=== PATIENT | male | born 1945 | race African-American/Black ===

== ENCOUNTER → 2017-08-08 13:43 | Outpatient (CLI) | payer MEDICARE, OTHER, SELFPAY ==
--- NOTE | 2017-08-08 13:48 | XR_ITS ---
XR elbow RT min 3V HISTORY: Pain and swelling elbow ITS.REASON: elbow knot ORDERING PHYSICIAN: Reinaldo Robb MD PATIENT AGE: 72 years COMPARISON: None FINDINGS: There is prominent soft tissue swelling along the olecranon region of the elbow consistent with olecranon bursitis. A prominent enthesophyte is present at the olecranon. No fracture or dislocation. No lytic or blastic change. IMPRESSION: Olecranon bursitis with prominent enthesophyte at the olecranon
== END ==
PROVIDERS: PCP Nurse Practitioner Family; Visit Provider Orthopaedic Surgery
DX: M25.421 Effusion, right elbow (principal)
CPT/HCPCS: 73080

== ENCOUNTER 2018-08-08 21:41 | Emergency (ER) | payer MEDICARE, SELFPAY ==
[2018-08-08 21:51] VITALS: BP 136/82; PULSE 71; RESP 20; TEMP 37.2; O2SAT 98; BMI 34.2
--- NOTE | 2018-08-08 21:54 | HMH.EDGENADL ---
ED Disposition Clinical Impression: URI (upper respiratory infection) Clinical Impression: (Ruled Out): URI due to ida influenza virus Disposition: Home, Self-Care Condition on Discharge: Good Instructions: DI for Viral Upper Respiratory Infection -- Adult Prescriptions: predniSONE [Prednisone 20mg Tab] 20 mg PO BID 5 Days #10 tab Benzonatate [Tessalon Perle 100mg Cap] 200 mg PO TID PRN 7 Days #20 cap PRN Reason: Cough Referrals: Cornelius Quesada MD [Primary Care Provider] - Time of Disposition: 23:10 - Critical Care Critical Care Time: No Attestation: On , the high probability of a clinically significant, sudden or life threatening deterioration of the following system(s) required my full and direct attention, intervention and personal management. The time I documented below is in addition to time spent performing reported procedures but includes the following listed in this critical care notation. Medical Decision Making - Medical Records Medical records reviewed: Yes: I reviewed the patient's medical records. - Gregory Inquiry Pt receiving controlled substance: No Gregory was queried for this patient: No Vital Signs: 08/08/18 21:51 Temperature 98.9 F Temperature Source Oral Pulse Rate [Right Brachial] 71 Respiratory Rate 20 Blood Pressure [Right Arm] 136/82 Blood Pressure Mean [Right Arm] 100 Blood Pressure Source [Right Arm] Automatic Cuff Blood Pressure Position [Right Arm] Sitting 02 Sat by Pulse Oximetry 98 Oxygen Delivery Method Room Air - Lab Data Lab results reviewed: Yes: I reviewed the patient's lab results. Orders (Tests/Meds): ED MEDICATIONS Generic Name Dose Route Start Last Admin Trade Name Freq PRN Reason Stop Dose Admin Benzonatate 200 mg 08/08/18 23:15 Tessalon Perles 100mg Capsule PO 09/07/18 23:14 ONCE AYESHA Dexamethasone Sodium Phosphate 10 mg 08/08/18 23:07 Decadron 4mg/Ml 1ml Vial IM 08/08/18 23:08 ONCE ONE ORDERS Category Date Time Status XR chest 2V Stat Exams 08/08/18 21:58 Taken General Adult HPI - General Stated complaint: cough Time Seen by Provider: 08/08/18 21:54 Mode of Arrival: Ambulatory Source of Information: Patient Limitations: No Limitations - Related Data Home Medications Medication Instructions Recorded Confirmed Amlodipine Besylate [Norvasc 5mg 5 mg PO DAILY 08/08/18 08/08/18 tablet] Aspirin [Low Dose Aspirin EC] 81 mg PO DAILY 08/08/18 08/08/18 Lisinopril/Hydrochlorothiazide 1 tab PO DAILY 08/08/18 08/08/18 [Lisinopril-Hctz 20-25 mg Tab] Previous Rx's Medication Instructions Recorded Benzonatate [Tessalon Perle 100mg 200 mg PO TID PRN 7 Days #20 cap 08/08/18 Cap] predniSONE [Prednisone 20mg 20 mg PO BID 5 Days #10 tab 08/08/18 Tab] Allergies Allergy/AdvReac Type Severity Reaction Status Date / Time No Known Allergies Allergy Verified 08/08/18 21:57 [facility] History - Hepatitis A Screen Attestation statement:: This patient has been screened for Hepatitis A risk factors. I have reviewed the patient's past medical history: Yes Medical History: Reports:: Hyperlipidemia, Hypertension Other Surgeries: Yes: Cardiac Catheterization, Other - Social History Smoking Status: Never smoker Alcohol Intake: current Alcohol Intake Frequency:: holidays/special occasions only Substance Use Type: denies use Occupational Status: unemployed, retired Family Hx:: No significant family history ROS Obtained: Yes All systems reviewed & no additional complaints - Constitutional Constitutional: Denies chills, Denies fever(s) - Eyes Eyes: Denies change in vision - ENT Ears, Nose, Mouth, and Throat: Reports throat swelling, Reports other (subjective) - Cardiovascular Cardiovascular: Denies chest pain - Respiratory Respiratory: Yes cough, No dyspnea - Gastrointestinal Gastrointestingal: Reports: system reviewed and no additional complaints, except as docu - Musc
--- NOTE | 2018-08-08 21:58 | XR_ITS ---
XR chest 2V HISTORY: ITS.REASON: cough ORDERING PHYSICIAN: Cornelius Harrell MD PATIENT AGE: 73 years COMPARISON: 08/15/2015 FINDINGS: The cardiomediastinal silhouette and pulmonary vascularity are within normal limits. There is mild right basilar atelectasis. Slightly elevated left hemidiaphragm Degenerative change thoracic spine.. IMPRESSION: Right basilar atelectasis
--- NOTE | 2018-08-08 22:00 | ED_ITS ---
ED Disposition Clinical Impression: URI (upper respiratory infection) Clinical Impression: (Ruled Out): URI due to ida influenza virus Disposition: Home, Self-Care Condition on Discharge: Good Instructions: DI for Viral Upper Respiratory Infection -- Adult Prescriptions: predniSONE [Prednisone 20mg Tab] 20 mg PO BID 5 Days #10 tab Benzonatate [Tessalon Perle 100mg Cap] 200 mg PO TID PRN 7 Days #20 cap PRN Reason: Cough Referrals: Cornelius Quesada MD [Primary Care Provider] - Time of Disposition: 23:10 - Critical Care Critical Care Time: No Attestation: On , the high probability of a clinically significant, sudden or life threatening deterioration of the following system(s) required my full and direct attention, intervention and personal management. The time I documented below is in addition to time spent performing reported procedures but includes the following listed in this critical care notation. Medical Decision Making - Medical Records Medical records reviewed: Yes: I reviewed the patient's medical records. - Gregory Inquiry Pt receiving controlled substance: No Gregory was queried for this patient: No Vital Signs: 08/08/18 21:51 Temperature 98.9 F Temperature Source Oral Pulse Rate [Right Brachial] 71 Respiratory Rate 20 Blood Pressure [Right Arm] 136/82 Blood Pressure Mean [Right Arm] 100 Blood Pressure Source [Right Arm] Automatic Cuff Blood Pressure Position [Right Arm] Sitting 02 Sat by Pulse Oximetry 98 Oxygen Delivery Method Room Air - Lab Data Lab results reviewed: Yes: I reviewed the patient's lab results. Orders (Tests/Meds): ED MEDICATIONS Generic Name Dose Route Start Last Admin Trade Name Freq PRN Reason Stop Dose Admin Benzonatate 200 mg 08/08/18 23:15 Tessalon Perles 100mg Capsule PO 09/07/18 23:14 ONCE AYESHA Dexamethasone Sodium Phosphate 10 mg 08/08/18 23:07 Decadron 4mg/Ml 1ml Vial IM 08/08/18 23:08 ONCE ONE ORDERS Category Date Time Status XR chest 2V Stat Exams 08/08/18 21:58 Taken General Adult HPI - General Stated complaint: cough Time Seen by Provider: 08/08/18 21:54 Mode of Arrival: Ambulatory Source of Information: Patient Limitations: No Limitations - Related Data Home Medications Medication Instructions Recorded Confirmed Amlodipine Besylate [Norvasc 5mg 5 mg PO DAILY 08/08/18 08/08/18 tablet] Aspirin [Low Dose Aspirin EC] 81 mg PO DAILY 08/08/18 08/08/18 Lisinopril/Hydrochlorothiazide 1 tab PO DAILY 08/08/18 08/08/18 [Lisinopril-Hctz 20-25 mg Tab] Previous Rx's Medication Instructions Recorded Benzonatate [Tessalon Perle 100mg 200 mg PO TID PRN 7 Days #20 cap 08/08/18 Cap] predniSONE [Prednisone 20mg 20 mg PO BID 5 Days #10 tab 08/08/18 Tab] Allergies Allergy/AdvReac Type Severity Reaction Status Date / Time No Known Allergies Allergy Verified 08/08/18 21:57 [facility] History - Hepatitis A Screen Attestation statement:: Hilary paticlaude
[2018-08-08 23:23] VITALS: BP 128/69; PULSE 81; RESP 18; TEMP 36.7; O2SAT 98
== END 2018-08-08 23:24 | disposition home or self-care (01) ==
PROVIDERS: Emergency Provider Emergency Medicine; PCP Emergency Medicine
DX: J06.9 Acute upper respiratory infection, unspecified (principal)
CPT/HCPCS: 71046; 96372; 99282

== ENCOUNTER → 2018-12-05 09:11 | Outpatient (CLI) | payer MEDICARE, SELFPAY ==
[2018-12-05 11:33] LABS: Alanine Aminotransferase 26 U/L (12-78); Albumin Level 3.7 gm/dL (3.4-5.0); Alkaline Phosphatase 63 U/L (46-116); Aspartate Amino Transferase 15 U/L (15-37); Bilirubin,Direct 0.1 mg/dL (0.0-0.2); Bilirubin,Indirect 0.5 mg/dL (0.0-0.9); Bilirubin,Total 0.6 mg/dL (0.2-1.0); Chol/HDL Ratio 3.4 (1-3.5); Cholesterol 186 mg/dL (140-200); HDL Cholesterol 54 mg/dL (27-67); LDL Cholesterol 121 mg/dL (0-130); Total Protein,Serum 7.3 gm/dL (6.4-8.2); Triglycerides 53 mg/dL (30-200); VLDL Cholesterol 11 mg/dL (0-40)
== END ==
PROVIDERS: Visit Provider Nurse Practitioner Family
DX: I10 Essential (primary) hypertension; R00.1 Bradycardia, unspecified; E78.49 Other hyperlipidemia
CPT/HCPCS: 36415; 80061; 80076

== ENCOUNTER 2020-01-24 23:05 | Emergency (ER) | payer MEDICARE, SELFPAY ==
--- NOTE | 2020-01-24 23:37 | PC.NURSE ---
Pt states he was exposed to a positive COVID pt and was here for a COVID test, pt did not want to be seen in ER, only tested. Pt was given an outpatient COVID order and left
[2020-01-24 23:39] VITALS: BP 000/00; PULSE 0; RESP 0; TEMP -17.7; TEMP 0; O2SAT 0
== END 2020-01-24 23:39 | disposition left against medical advice (07) ==
PROVIDERS: Emergency Provider Student in an Organized Health Care Education/Training Program; PCP Emergency Medicine
DX: Z53.21 Procedure and treatment not carried out due to patient leaving prior to being seen by health care provider (principal)
CPT/HCPCS: 99211

== ENCOUNTER → 2020-01-24 23:19 | Outpatient (CLI) | payer MEDICARE, SELFPAY | PROVIDERS: PCP Emergency Medicine; Visit Provider Student in an Organized Health Care Education/Training Program | DX: Z03.818 Encounter for observation for suspected exposure to other biological agents ruled out (principal) | CPT/HCPCS: U0003 ==

== ENCOUNTER → 2020-02-02 12:11 | Outpatient (CLI) | payer MEDICARE, SELFPAY ==
[2020-02-02 14:25] LABS: Alanine Aminotransferase 33 U/L (12-78); Albumin Level 4.3 g/dl (3.5-5.0); Alkaline Phosphatase 76 U/L (38-126); Aspartate Amino Transferase 29 U/L (17-59); Bilirubin,Indirect 0.6 mg/dL (0.0-0.9); Bilirubin,Total 0.6 mg/dl (0.2-1.3); Bilirubin,Unconjugated 0.6 mg/dL (0.0-1.1); Cholesterol 133 mg/dl (140-200); Total Protein,Serum 7.5 g/dl (6.3-8.2); Triglycerides 66 mg/dl (30-150); VLDL Cholesterol 13 mg/dL (0-40)
[2020-02-02 14:26] LABS: Chol/HDL Ratio 2.2 (1-3.5); HDL Cholesterol 60 mg/dl (40-60)
[2020-02-02 14:37] LABS: Direct LDL Cholesterol 62.32 mg/dL (100-129)
== END ==
PROVIDERS: Visit Provider Nurse Practitioner Family
DX: E78.5 Hyperlipidemia, unspecified (principal); I10 Essential (primary) hypertension
CPT/HCPCS: 36415; 80061; 80076

== ENCOUNTER 2020-03-18 14:31 | Emergency (ER) | payer MEDICARE, SELFPAY ==
[2020-03-18 14:45] VITALS: BP 155/57; PULSE 63; RESP 18; TEMP 36.8; O2SAT 96; BMI 33.4
[2020-03-18 14:59] VITALS: BP 155/57; PULSE 63; RESP 18; TEMP 36.8; O2SAT 96
--- NOTE | 2020-03-18 15:13 | HMH.EDUTC ---
[facility] [place] Impression: Exposure to COVID-19 virus Disposition: Home, Self-Care Condition on Discharge: Good Instructions: Preventing the Spread of Coronavirus Discharge Instructions Additional Instructions: Drink plenty of fluids. Take tylenol for pain or fever. Return if you begin to have difficulty breathing. Follow up with your regular doctor. GO TO THE ER FOR ANY WORSENING SYMPTOMS Referrals: Cornelius Quesada MD [Primary Care Provider] - Time of Disposition: 15:14 Medical Decision Making - Medical Records Medical records reviewed: No: I reviewed the patient's medical records. - Gregory Inquiry Pt receiving controlled substance: No Vital Signs: 03/18/20 14:45 03/18/20 14:59 Temperature 98.3 F 98.3 F Temperature Source Oral Pulse Rate 63 Pulse Rate [Right Brachial] 63 Respiratory Rate 18 18 Blood Pressure 155/57 H Blood Pressure [Right Arm] 155/57 H Blood Pressure Mean [Right Arm] 89 Blood Pressure Source [Right Arm] Automatic Cuff Blood Pressure Position [Right Arm] Sitting 02 Sat by Pulse Oximetry 96 Oxygen Delivery Method Room Air [facility] [place] - General Stated complaint: covid exposure Time Seen by Provider: 03/18/20 15:13 Mode of Arrival: Ambulatory Source of Information: Patient Limitations: No Limitations Description of Symptoms (Recalled from Triage Doc. by RN): REQUESTING COVID TEST D/T EXPOSURE; C/O COUGH HEENT Symptoms (Recalled from RN notes): No Resp Symptoms (Recalled from RN notes): Yes Skin Symptoms (Recalled from RN notes): No MS Symptoms (Recalled from RN notes): No Functional Status (Recalled from RN notes): WNL - History of Present Illness Provider Complaint: He states that he may have been exposed to covid. He denies any symptoms so far. He would like to be tested to be safe and keep from spreading it. - Related Data Previous Rx's Medication Instructions Recorded aspirin 81 mg tablet,delayed 81 mg PO DAILY #90 tab 08/26/19 release amlodipine 5 mg tablet 5 mg PO DAILY #90 tab 09/25/19 atorvastatin 20 mg tablet 20 mg PO DAILY #90 tab 09/25/19 lisinopril 20 1 tab PO DAILY #30 tab 11/24/19 mg-hydrochlorothiazide 25 mg tablet Allergies Allergy/AdvReac Type Severity Reaction Status Date / Time No Known Allergies Allergy Verified 02/02/20 11:28 - Worker's Comp Is this a Worker's Comp case?: No [facility] History - Hepatitis A Screen Drug use history?: No High risk sexual behaviors?: No History of sexually transmitted infection?: No Currently employed?: No Childcare worker?: No Do you have indoor plumbing?: Yes Do you have electricity?: Yes Attestation statement:: This patient has been screened for Hepatitis A risk factors. I have reviewed the patient's past medical history: Yes Medical History: Reports:: Hyperlipidemia, Hypertension Denies:: Diabetes Mellitus Type 1 Other Surgeries: Yes: Cardiac Catheterization, Other - Social History Smoking Status: Never smoker Alcohol Intake: never Alcohol Intake Frequency:: holidays/special occasions only Substance Use Type: denies use Occupational Status: other Housing: house Family Hx:: No significant family history ROS Obtained: Yes All systems reviewed & no additional complaints - Constitutional Constitutional: Reports system reviewed and no additional complaints, except as docu - Eyes Eyes: Reports system reviewed and no additional complaints, except as docu - ENT Ears, Nose, Mouth, and Throat: Reports system reviewed and no additional complaints, except as docu - Cardiovascular Cardiovascular: Reports system reviewed and no additional complaints, except as docu - Respiratory Respiratory: Reports system reviewed and no additional complaints, except as docu - Gastrointestinal Gastrointestingal: Reports: system reviewed and no additional complaints, except as docu Physical Exam - General General appearance: alert, in no apparent distress - Head He
--- NOTE | 2020-03-18 20:10 | PC.NURSE ---
PT NOTIFIED OF POSITIVE COVID RESULTS
== END 2020-03-18 15:17 | disposition home or self-care (01) ==
PROVIDERS: Emergency Provider Nurse Practitioner Family; PCP Emergency Medicine
DX: U07.1 COVID-19 (principal); I10 Essential (primary) hypertension; E78.5 Hyperlipidemia, unspecified
CPT/HCPCS: G0463; 99202; U0003

== ENCOUNTER 2020-11-05 12:19 | Emergency (ER) | payer MEDICARE, SELFPAY ==
[2020-11-05 14:22] VITALS: BP 126/66; PULSE 51; RESP 20; TEMP 36.8; O2SAT 97; BMI 32.6
--- NOTE | 2020-11-05 14:30 | HMH.EDUTC ---
[facility] [place] Clinical Impression: Exposure to COVID-19 virus Disposition: Home, Self-Care Condition on Discharge: Good Instructions: DI for COVID-19 (Suspected or Confirmed ), Preventing the Spread of Coronavirus Discharge Instructions Additional Instructions: Drink plenty of fluids. Take tylenol for pain or fever. Return if you begin to have difficulty breathing. Follow up with your regular doctor. GO TO THE ER FOR ANY WORSENING SYMPTOMS Quarantine until you know the results of your covid-19 test. If it is positive, the health department should call you and give you further instructions about your length of Quarantine and other things. Notify your school or workplace of your results and follow their instructions regarding return to work/school. Referrals: Cornelius Quesada MD [Primary Care Provider] - Time of Disposition: 14:33 Medical Decision Making - Medical Records Medical records reviewed: No: I reviewed the patient's medical records. - Gregory Inquiry Pt receiving controlled substance: No Vital Signs: 11/05/20 14:22 11/05/20 14:39 Temperature 98.2 F 98.2 F Temperature Source Oral Pulse Rate 57 L Pulse Rate [Left] 51 L Respiratory Rate 20 19 Blood Pressure 125/71 Blood Pressure [Right Arm] 126/66 Blood Pressure Mean [Right Arm] 86 02 Sat by Pulse Oximetry 97 [facility] [place] - General Stated complaint: covid test/exposure Time Seen by Provider: 11/05/20 14:30 Mode of Arrival: Ambulatory Source of Information: Patient Limitations: No Limitations Description of Symptoms (Recalled from Triage Doc. by RN): PT WAS EXPOSED TO COVID POSITIVE FRIEND TWO DAYS AGO. PT IS ASYMPTOMATIC. HEENT Symptoms (Recalled from RN notes): No Resp Symptoms (Recalled from RN notes): No Skin Symptoms (Recalled from RN notes): No MS Symptoms (Recalled from RN notes): No Functional Status (Recalled from RN notes): NA - History of Present Illness Provider Complaint: He states that he was exposed to covid-19 around 6 days ago. He has not been vaccinated but he did have covid-19 back in May. He denies any symptoms at this time. - Related Data Previous Rx's Medication Instructions Recorded lisinopril 20 1 tab PO DAILY #90 tab 05/23/20 mg-hydrochlorothiazide 25 mg tablet aspirin 81 mg tablet,delayed 81 mg PO DAILY #90 tab 08/15/20 release amlodipine 5 mg tablet See Rx Instructions .ROUTE 09/19/20 .COMPLEX #90 tab atorvastatin 20 mg tablet See Rx Instructions .ROUTE 09/19/20 .COMPLEX #90 tab Allergies Allergy/AdvReac Type Severity Reaction Status Date / Time No Known Allergies Allergy Verified 08/15/20 09:13 - Worker's Comp Is this a Worker's Comp case?: No [facility] History - Hepatitis A Screen Drug use history?: No High risk sexual behaviors?: No History of sexually transmitted infection?: No Currently employed?: No Childcare worker?: No Do you have indoor plumbing?: Yes Do you have electricity?: Yes Attestation statement:: This patient has been screened for Hepatitis A risk factors. I have reviewed the patient's past medical history: Yes Medical History: Reports:: Hyperlipidemia, Hypertension Denies:: Diabetes Mellitus Type 1 Other Surgeries: Yes: Cardiac Catheterization, Other - Social History Smoking Status: Never smoker Alcohol Intake: never Alcohol Intake Frequency:: holidays/special occasions only Substance Use Type: denies use Occupational Status: other Housing: house Family Hx:: No significant family history ROS Obtained: Yes All systems reviewed & no additional complaints - Constitutional Constitutional: Reports system reviewed and no additional complaints, except as docu - Eyes Eyes: Reports system reviewed and no additional complaints, except as docu - ENT Ears, Nose, Mouth, and Throat: Reports system reviewed and no additional complaints, except as docu - Cardiovascular Cardiovascular: Reports system reviewed and no additional complaints, e
[2020-11-05 14:39] VITALS: BP 125/71; PULSE 57; RESP 19; TEMP 36.8
== END 2020-11-05 14:48 | disposition home or self-care (01) ==
PROVIDERS: Emergency Provider Nurse Practitioner Family; PCP Emergency Medicine
DX: Z20.822 Contact with and (suspected) exposure to COVID-19 (principal); I10 Essential (primary) hypertension; E78.5 Hyperlipidemia, unspecified; Z79.899 Other long term (current) drug therapy
CPT/HCPCS: G0463; 99202; U0003

== ENCOUNTER → 2021-08-24 13:50 | Outpatient (CLI) | payer MEDICARE, SELFPAY ==
[2021-08-24 14:52] LABS: Alanine Aminotransferase 24 U/L (12-78); Albumin Level 4.2 g/dl (3.5-5.0); Alkaline Phosphatase 80 U/L (38-126); Aspartate Amino Transferase 29 U/L (17-59); Bilirubin,Direct 0.1 mg/dl (0.0-0.4); Bilirubin,Indirect 0.7 mg/dL (0.0-0.9); Bilirubin,Total 0.8 mg/dl (0.2-1.3); Bilirubin,Unconjugated 0.7 mg/dL (0.0-1.1); Chol/HDL Ratio 2.4 (1-3.5); Cholesterol 115 mg/dl (140-200); HDL Cholesterol 47 mg/dl (40-60); Total Protein,Serum 7.1 g/dl (6.3-8.2); Triglycerides 49 mg/dl (30-150); VLDL Cholesterol 10 mg/dL (0-40)
== END ==
PROVIDERS: PCP Emergency Medicine; Visit Provider Nurse Practitioner
DX: E78.5 Hyperlipidemia, unspecified (principal); I10 Essential (primary) hypertension
CPT/HCPCS: 36415; 80061; 80076

== ENCOUNTER → 2022-08-31 08:49 | Outpatient (CLI) | payer MEDICARE, SELFPAY ==
[2022-08-31 10:11] LABS: Alanine Aminotransferase 40 U/L (12-78); Albumin Level 3.9 g/dl (3.5-5.0); Alkaline Phosphatase 97 U/L (38-126); Aspartate Amino Transferase 34 U/L (17-59); Bilirubin,Indirect 1.1 mg/dL (0.0-0.9); Bilirubin,Total 1.1 mg/dl (0.2-1.3); Bilirubin,Unconjugated 1.2 mg/dL (0.0-1.1); Chol/HDL Ratio 2.6 (1-3.5); Cholesterol 128 mg/dl (140-200); HDL Cholesterol 50 mg/dl (40-60); Total Protein,Serum 6.9 g/dl (6.3-8.2); Triglycerides 51 mg/dl (30-150); VLDL Cholesterol 10 mg/dL (0-40)
[2022-08-31 10:22] LABS: Direct LDL Cholesterol 67.68 mg/dL (100-129)
== END ==
PROVIDERS: PCP Emergency Medicine; Visit Provider Nurse Practitioner Family
DX: I51.7 Cardiomegaly; E78.2 Mixed hyperlipidemia
CPT/HCPCS: 36415; 80061; 80076

== ENCOUNTER 2023-03-14 09:20 | Outpatient (CLI) | payer MEDICARE, SELFPAY ==
[2023-03-14 10:20] LABS: Chloride 106 mmol/L (98-107)
[2023-03-14 10:21] LABS: Potassium 3.9 mmoL/L (3.5-5.1); Sodium 139 mmol/L (136-145)
[2023-03-14 10:23] LABS: Alanine Aminotransferase 30 U/L (12-78); Alkaline Phosphatase 85 U/L (38-126); Anion Gap 9.9 mEq/L (5-15); Aspartate Amino Transferase 29 U/L (17-59); Bilirubin,Indirect 0.7 mg/dL (0.0-0.9); Bilirubin,Total 0.7 mg/dl (0.2-1.3); Bilirubin,Unconjugated 0.7 mg/dL (0.0-1.1); Blood Urea Nitrogen 14 mg/dl (9-20); Carbon Dioxide 27 mmol/L (22.0-30.0); Cholesterol 123 mg/dl (140-200); Estimated Glomerular Filt Rate 73 ml/min (>60); GFR (African American) 88 ML/MIN (>60); Triglycerides 43 mg/dl (30-150); VLDL Cholesterol 9 mg/dL (0-40)
[2023-03-14 10:24] LABS: Albumin Level 3.6 g/dl (3.5-5.0); Calcium 8.3 mg/dl (8.4-10.2); Chol/HDL Ratio 2.9 (1-3.5); Glucose 105 mg/dl (74-100); HDL Cholesterol 43 mg/dl (40-60); Magnesium 1.8 mg/dl (1.6-2.3); Total Protein,Serum 6.4 g/dl (6.3-8.2)
[2023-03-14 10:35] LABS: Direct LDL Cholesterol 73.22 mg/dL (100-129)
== END 2023-03-14 23:59 ==
LOC: LAB 09:21
PROVIDERS: PCP Internal Medicine; Visit Provider Physician Assistant
DX: E78.5 Hyperlipidemia, unspecified (principal); I10 Essential (primary) hypertension; I51.7 Cardiomegaly
CPT/HCPCS: 36415; 80048; 80061; 80076; 83735

== ENCOUNTER 2024-08-12 09:20 | Outpatient (CLI) | payer MEDICARE, SELFPAY ==
[2024-08-12 10:12] LABS: Basophils % 0.4 % (0.1-2.0); Eosinophils # 0.2 Kmm3 (0.0-0.4); Eosinophils % 2.4 % (0.1-12.0); Hematocrit 46.2 % (42.0-52.0); Hemoglobin 15.6 g/dL (14.1-18.0); Immature Granulocytes # 0.02 10^3uL; Immature Granulocytes % 0.2 %; Lymphocytes % 23.6 % (10-50); Mean Corpuscular HGB Conc 33.8 g/dL (31.8-35.4); Mean Corpuscular Hemoglobin 30.5 pg (27.0-31.2); Mean Corpuscular Volume 90.4 fl (80-94); Mean Platelet Volume 11.1 fl (7.4-10.4); Monocytes # 0.9 K/mm3 (0.1-1.0); Monocytes % 10.4 % (1.7-9.3); Neutrophils # 5.2 K/mm3 (1.8-7.8); Nucleated Red Blood Cells # 0 10^3/uL; Nucleated Red Blood Cells % 0 %; Platelet Count 213 K/mm3 (142-424); Red Blood Count 5.11 M/mm3 (4.60-6.20); Red Cell Distribution Width 13.8 % (11.5-17.5); White Blood Count 8.3 K/mm3 (4.8-10.8)
[2024-08-12 10:27] LABS: Albumin Level 4.2 g/dl (3.5-5.0); Chloride 101 mmol/L (98-107)
[2024-08-12 10:28] LABS: Potassium 4.7 mmoL/L (3.5-5.1); Sodium 138 mmol/L (136-145)
[2024-08-12 10:30] LABS: Alanine Aminotransferase 32 U/L (12-78); Anion Gap 9.7 mEq/L (5-15); Aspartate Amino Transferase 37 U/L (17-59); Bilirubin,Unconjugated 1.1 mg/dL (0.0-1.1); Blood Urea Nitrogen 17 mg/dl (9-20); Carbon Dioxide 32 mmol/L (22.0-30.0); Estimated Glomerular Filt Rate 82 ml/min (>60); GFR (African American) 99 ML/MIN (>60); Total Protein,Serum 7.4 g/dl (6.3-8.2)
[2024-08-12 10:31] LABS: Alkaline Phosphatase 88 U/L (38-126); Bilirubin,Direct 0.1 mg/dl (0.0-0.4); Bilirubin,Indirect 1.1 mg/dL (0.0-0.9); Bilirubin,Total 1.2 mg/dl (0.2-1.3); Calcium 9.7 mg/dl (8.4-10.2); Chol/HDL Ratio 2.7 (1-3.5); Cholesterol 135 mg/dl (140-200); Glucose 112 mg/dl (74-100); HDL Cholesterol 50 mg/dl (40-60); Magnesium 1.8 mg/dl (1.6-2.3); Triglycerides 57 mg/dl (30-150); VLDL Cholesterol 11 mg/dL (0-40)
[2024-08-12 10:42] LABS: Direct LDL Cholesterol 61.35 mg/dL (100-129)
[2024-08-12 10:46] LABS: Free T4 (Free Thyroxine) 0.92 ng/dl (0.78-2.19)
[2024-08-12 11:01] LABS: Thyroid Stimulating Hormone 3.88 uIU/mL (0.465-4.68)
[2024-08-12 11:25] LABS: Prostate Specific Ag, Diagnost 4.47 ng/ml (0.0-4.0)
== END 2024-08-12 23:59 | disposition home or self-care (01) ==
LOC: LAB 09:21
PROVIDERS: Visit Provider Nurse Practitioner Family
DX: I11.9 Hypertensive heart disease without heart failure (principal)
CPT/HCPCS: 36415; 80048; 80061; 80076; 83735; 84153; 84439; 84443; 85025

== ENCOUNTER 2025-03-01 10:35 | Outpatient (CLI) | payer MEDICARE, SELFPAY ==
[2025-03-01 10:41] LABS: Microscopic, Urine URINE MICROSCOPIC (MICROSCOPIC)
[2025-03-01 11:31] LABS: Bilirubin,Urine Negative (Negative); Color,Urine YELLOW (Yellow); Glucose,Urine (UA) Negative (Negative); Ketones,Urine Negative (Negative); Leukocyte Esterase,Urine Negative (Negative); PH,Urine 6.0 (5.0-8.5); Protein,Urine Negative (Negative); Specific Gravity, Urine 1.025 (1.005-1.030); Urobilinogen,Urine 2.0 EU/dl (0.2)
[2025-03-01 11:50] LABS: RBC,Urine Occasional #/hpf (0-3)
[2025-03-02 10:04] LABS: PSA, Free 2.63 ng/mL
== END 2025-03-01 23:59 | disposition home or self-care (01) ==
LOC: LAB 10:36
PROVIDERS: Visit Provider Urology
DX: R97.20 Elevated prostate specific antigen [PSA] (principal); R32 Unspecified urinary incontinence
CPT/HCPCS: 36415; 81001; 84153; 84154